=== PATIENT | female | born 2000 | race Caucasian/White ===

== ENCOUNTER 2020-11-18 20:55 | Emergency (ER) | payer BC ==
[~2020-11-18 20:55] MED LIST: Iopamidol-370 76% 500 ML 1 ML ONE
[2020-11-18] MEDS ORDERED: Ondansetron PF 4 MG/2 ML Vial ONE (21:06)
[2020-11-18 21:22] LABS: Hemoglobin 15.6 g/dL (12.0-16.0); Mean Corpuscular HGB CONC 33.9 g/dL (32.0-36.0); Mean Corpuscular Hemoglobin 30.4 pg (27.0-31.0); Mean Corpuscular Volume 89.7 fL (78.0-98.0); Mean Platelet Volume 7.3 fL (7.4-10.4); Platelet Count 342 thou/uL (130-400); RBC Distribution Width 11.1 % (11.5-14.5); Red Blood Cell (RBC) Count 5.11 mill/uL (4.20-5.40); White Blood Cell (WBC) Count 18.4 thou/uL (4.8-10.8)
[2020-11-18 21:28] LABS: BHCG - Serum Negative (NEGATIVE); Pregs Control Background? CLEAR/WHITE (CLR/WHITE); Pregs Control Bar Appear? YES (CONTROL BAR)
[2020-11-18 21:40] LABS: Band 2 % (5-11); Eosinophils 2 % (0-10); Lymphocytes 1 % (21-51); MDiff Complete? YES; Monocytes 6 % (0-10); Neutrophil 89 % (42-75); RBC Morphology Normal
[2020-11-18 21:43] LABS: ALT (SGPT) 14 U/L (8-55); AST (SGOT) 13 U/L (5-34); Alkaline Phosphatase 54 U/L (40-110); Anion Gap 15 mmol/L (10-20); BUN (Urea Nitrogen) 17 mg/dL (7.0-18.7); Bilirubin, Total 0.7 mg/dL (0.2-1.2); Calc. Creatinine Clearance 0 mL/min (70-130); Calcium 9.6 mg/dL (7.8-10.44); Carbon Dioxide 25 mmol/L (22-29); Chloride 104 mmol/L (98-107); Globulin 3.4 g/dL (2.4-3.5); Glucose 112 mg/dL (70-105); Lipase 26 U/L (8-78); Potassium 3.9 mmol/L (3.5-5.1); Protein, Total 8.4 g/dL (6.0-8.3); Sodium 140 mmol/L (136-145)
[2020-11-18 21:46] LABS: #Basophils 0.1 thou/uL (0.0-0.2); #Eosinphils 0.1 thou/uL (0.0-0.7); #Lymphocytes 0.8 thou/uL (1.20-3.40); #Monocytes 0.9 thou/uL (0.11-0.59); #Neutrophils 18.1 thou/uL (1.40-6.50); %Basophils 0.3 % (0.0-1.0); %Eosinophils 0.3 % (0.0-10.0); %Monocytes 4.3 % (0.0-10.0); %Neutrophils 91.2 % (42.0-75.0)
[2020-11-18] MEDS ORDERED: Ketorolac Tromethamine 30 MG/ML VIAL ONE (22:49)
[2020-11-18 22:51] LABS: Bacteria/HPF None Seen HPF (None Seen); Bilirubin Negative (Negative); Blood, Urine 1+ (Negative); Clarity Clear (Clear); Glucose, Urine (Dipstick) Normal (Negative); Ketone, Urine 60 mg/dL (Negative); Leukocyte Negative Leu/uL (Negative); Nitrite Negative (Negative); Protein, Urine (Dipstick) 10 mg/dL (Neg-Trace); RBC/HPF 0-3 HPF (0-3); Specific Gravity, Urine 1.031 (1.002-1.036); Urobilinogen Normal mg/dL (Less than 2); WBC/HPF 0-3 HPF (0-3)
--- NOTE | 2020-11-19 00:02 | CT ---
CT ANGIOGRAM THORAX WITH IV CONTRAST AND 3-D RECONSTRUCTIONS CLINICAL INDICATION: Epigastric pain and back pain. Nausea, vomiting, and diarrhea. COMPARISON: None FINDINGS: Pulmonary arteries: No filling defects are seen in the pulmonary arteries to suggest a pulmonary embo saeed. Aorta: The aorta is normal in caliber without evidence of an aortic dissection. Lungs: Patchy parenchymal density is seen at the posteromedial right costophrenic angle which is thou ght to most likely be related to atelectasis. The lungs are otherwise clear. Mediastinum: Minimal soft tissue density is seen anterior superior mediastinum likely related to resi dual thymic tissue. Thyroid gland: Normal in appearance where imaged. Osseous structures: No suspicious lytic or sclerotic osseous lesion. Chest wall: No abnormality visualized. Upper abdomen: Limited visualized upper abdomen demonstrates normal appearance for phase of imaging. IMPRESSION: 1. No CT evidence of a pulmonary embolus. 2. Findings most suggestive of atelectasis at the posteromedial right lung base. Lungs are otherwise clear.
--- NOTE | 2020-11-19 00:10 | CT ---
CT ABDOMEN AND PELVIS WITH IV CONTRAST 11/18/2020 CLINICAL INFORMATION: Nausea, vomiting, and diarrhea. Epigastric abdominal pain. COMPARISON: None. Technique: Multiple contiguous axial CT images are obtained through the abdomen and pelvis with IV contrast. Cor onal reformatted images are provided. FINDINGS: Lower Chest: As noted on CT of the chest, there is patchy parenchymal density at the posteromedial ri ght lung base favored to represent atelectasis. Vessels: Abdominal aorta is normal in caliber. Abdomen: Portal vein:Patent Gallbladder: Surgically absent. Liver: within normal limits. Spleen: within normal limits. Pancreas: within normal limits. Adrenals: There is calcification involving the left adrenal gland which may be related to prior adren al hemorrhage or secondary to prior granulomatous disease. Right adrenal gland has a normal CT appearance. Kidneys: within normal limits. Bowel: There is increased density seen in the gastric fundus likely related to ingestion bismuth type material. Appendix: Not visualized due to multiple adjacent unopacified loops of bowel in the right lower quadr ant near the cecal apex. No secondary signs to suggest appendicitis are noted. Peritoneum: No ascites or free air; no fluid collection. Mesentery and Retroperitoneum: No enlarged mesenteric or retroperitoneal lymph nodes. Abdominal Wall: within normal limits. Pelvis: Reproductive Organs: There is a T-shaped intrauterine contraceptive device noted in place. However, t he distal portion of the intrauterine contraceptive device extends into the region of the endocervical canal. This is abnormal positioning of the contraceptive device. Bladder: within normal limits. Bones: A tiny subcentimeter lucency with sclerotic margins is seen in the intertrochanteric region ri ght hip which has the appearance of a lesion of low biological activity. IMPRESSION: 1. T-shaped intrauterine contraceptive device. However, the distal portion of the contraceptive devic e is in the region of the endocervical canal. [employer] consultation is suggested for further evaluation and repositioning of the contraceptive device. 2. Probable atelectasis right lung base. 3. Cholecystectomy. 4. No acute findings in the abdomen or pelvis.
[2020-11-19] MEDS ORDERED: Lidocaine Viscous Sol 2% 15 ml UD Cup ONE (00:51)
[2020-11-19] MEDS ORDERED: Mag-Al 1200 mg/1200 mg/30 ML UDCUP ONE (00:51)
== END 2020-11-19 01:50 | disposition home or self-care (01) ==
LOC: ERS 20:55
DX: R11.2 Nausea with vomiting, unspecified (principal); R10.13 Epigastric pain
CPT/HCPCS: 36415; 71275; 74177; 80053; 81003; 81015; 83690; 84703; 85025; 93005; 96374; 96375; J1885; J2405; Q9967